=== PATIENT | female | born 1965 | race Two or more races ===

== ENCOUNTER 2017-01-16 08:52 | Emergency (ER) | payer OTHER ==
[~2017-01-16] VITALS: Ht 152.4 cm; Wt 71.0 kg
[2017-01-16 08:56] VITALS: Ht 152.4 cm; Wt 71.0 kg
[2017-01-16] MEDS ORDERED: HYDROCODONE/APAP (5/325) TAB PO ONE (09:00)
--- NOTE | 2017-01-16 09:46 | ERD ---
ER Documentation Chief Complaint Date/Time DATE: 01/16/17 TIME: 09:39 Chief Complaint bilateral leg pain after fall HPI This is a very pleasant 51-year-old female presents to the emergency department after she had a mechanical slip and fall wearing slippers down 2 steps in her home on a carpeted surface. The patient did not hit her head or lose consciousness. She indicates she is having pain of her left ankle that is 8 out of 10 in intensity and worse with ambulation. She is also complaining of mild pain of her right ankle that is exacerbated by movement, 2 out of 10 in intensity. She has no numbness or tingling of her bilateral lower extremities. She has had no fever shaking or chills. She did not take any analgesic medication prior to arrival. She denies a headache or neck pain and has no changes in sensation of her lower extremities. ROS All systems reviewed and are negative except as per history of present illness. Medications Home Meds Active Scripts Hydrocodone/Acetaminophen (Jarales 5-325 Tablet) 1 Each Tablet, 1 TAB PO Q6H Y for PAIN, #20 TAB Prov:JIN CARMONA 01/16/17 Ibuprofen* (Motrin*) 600 Mg Tab, 600 MG PO Q8, #30 TAB Prov:JIN CARMONA 01/16/17 Allergies Allergies: Coded Allergies: No Known Allergy (Unverified , 01/16/17) PMhx/Soc Medical and Surgical Hx: pt denies Medical Hx, pt denies Surgical Hx Hx Alcohol Use: No Hx Substance Use: No Hx Tobacco Use: No Physical Exam Vitals Vital Signs Date Time Temp Pulse Resp B/P Pulse Ox O2 Delivery O2 Flow Rate FiO2 01/16/17 08:56 98.1 75 18 136/74 99 Physical Exam Constitutional:Well-developed. Well-nourished. HEENT:Normocephalic. Atraumatic.Pupils were equal round reactive to light. Moist mucous membranes.No tonsillar exudates. No nasoseptal hematoma. No hemotympanum. Neck: No nuchal rigidity. No lymphadenopathy. No posterior cervical spine tenderness or step-offs. Respiratory: Not using accessory muscles of respiration.Lungs were clear to auscultation bilaterally. No rhonchi. No rales. No wheezing. Cardiovascular: Regular rate regular rhythm.No murmurs. No rubs were appreciated.S1, S2 normal. Distal pulses are palpable 2+ bilaterally. GI: Abdomen was soft. Nontender. Non Distended. No pulsatile abdominal masses or bruits. No rebound. No guarding. Bowel sounds were present and normal. Muscle skeletal: Full range of motion of both the upper and lower extremities bilaterally.Normal muscle tone.No assymetrical calf tenderness or swelling. Tenderness over the left medial and lateral malleolus with no midfoot tenderness on the left and no tenderness of the base of the fifth metatarsal. Patient able to dorsiflex and plantarflex the left foot. No tenderness of the left fibular head. Tenderness over the right medial malleolus. No tenderness over the base of the fifth right metatarsal and no midfoot tenderness on the right. Skin: No petechia, no purpura. No lesions on the palms or the soles of the feet. No maculopapular rash. NEURO: Patient was alert, awake, orientated x3.No facial droop. Gait observed and patient had difficulty ambulating more than 4 steps in the emergency department secondary to pain.Speech had regular rate and rhythm. No focal neurological deficits. Results 24 hrs Current Medications Medications (Trade) Dose Ordered Sig/Ernesto Route PRN Reason Start Time Stop Time Status Last Admin Dose Admin Acetaminophen/ Hydrocodone Bitart (Jarales (5/325)) 1 tab ONCE ONCE PO 01/16/17 09:00 01/16/17 09:01 DC 01/16/17 09:00 Procedures/MDM This patient presented to the emergency department with a mechanical trip and fall and bilateral ankle pain. Utilizing the [place] ankle and knee rules radiographic imaging was obtained of the left and right ankle and reviewed by myself. The patient had a closed oblique distal left fibular fracture and ankle sprain of the right as there is soft tissue swelling over the lateral malleolus. The patient was placed in a short leg posterior splint on the left and afterwards was reevaluated by myself and neurovascularly intact. Compartments were soft. The fracture was closed with no abrasions of the overlying skin. The patient received Jarales for analgesic control. She was also given a walking boot and an Jeffrey bandage was applied to the left ankle. I explained to the patient that she will require outpatient follow-up with an orthopedic surgeon. She was provided a prescription of both Jarales and Motrin. The patient was discharged home in fair condition. They were instructed to return to the emergency department at any time if there was any worsening of their condition. The patient stated they would follow up with their PCP in the next 24-48 hours to initiate a suitable medication regimen under the care of their PCP as well as to allow their PCP to monitor any drug reactions. The patient was discharged home with prescriptions after they gave informed consent to the new medication. They were also fully informed by myself on the adverse effects and adverse drug interactions in order to provide adequate safeguards to prevent possible adverse reactions to medications. Departure Diagnosis: Primary Impression: Closed fibular fracture Encounter type: initial encounter Fibula location: shaft Fracture morphology: oblique Fracture alignment: nondisplaced Laterality: left Qualified Code: S82.435A - Closed nondisplaced oblique fracture of shaft of left fibula, initial encounter Additional Impression: Right ankle sprain Encounter type: initial encounter Involved ligament of ankle: unspecified ligament Qualified Code: S93.401A - Sprain of right ankle, unspecified ligament, initial encounter Condition: Fair JIN CARMONA Jan 16, 2017 09:46
--- NOTE | 2017-01-16 09:46 | RADRPT ---
PROCEDURE: XR Left Ankle CLINICAL INDICATION: Ankle pain TECHNIQUE: Standard 3 view radiographs were submitted. COMPARISON: None FINDINGS: Osseous structures: There is an oblique nondisplaced fracture through the distal left fibular metadi aphysis. The remaining osseous elements appear intact. Joint spaces: The ankle mortise is well maintained. Soft tissues: Appear unremarkable. IMPRESSION: Nondisplaced oblique fracture of the distal left fibular metadiaphysis. Physician Ivette Date Time Electronically viewed and signed by Sherlyn Kurtz Physician on 01/16/2017 09:46 /
--- NOTE | 2017-01-16 09:47 | RADRPT ---
PROCEDURE: XR Right Ankle CLINICAL INDICATION: Ankle pain TECHNIQUE: Standard 3 view radiographs were submitted. COMPARISON: None FINDINGS: Osseous structures: Well mineralized and intact with no fracture or destructive process identified. Joint spaces: Well maintained with no significant erosions or spurring evident. Soft tissues: Soft tissue swelling is seen about the lateral malleolus suspicious for a sprain. IMPRESSION: Right ankle sprain. Physician Ivette Date Time Electronically viewed and signed by Sherlyn Kurtz Physician on 01/16/2017 09:46 /
[2017-01-16] MEDS ORDERED: HYDR-906 PO (09:50)
[2017-01-16] MEDS ORDERED: IBUP-1542 PO (09:50)
== END 2017-01-16 10:32 | disposition home or self-care (01) ==
LOC: FTE 08:52
DX: S82.435A Nondisplaced oblique fracture of shaft of left fibula, initial encounter for closed fracture (principal); S93.401A Sprain of unspecified ligament of right ankle, initial encounter; W10.9XXA Fall (on) (from) unspecified stairs and steps, initial encounter; Y92.009 Unspecified place in unspecified non-institutional (private) residence as the place of occurrence of the external cause
CPT/HCPCS: 29515; 73610; Z7610

== ENCOUNTER 2017-04-05 06:02 | Emergency (ER) | payer OTHER ==
[~2017-04-05] VITALS: Ht 175.3 cm; Wt 95.5 kg
[~2017-04-05 06:02] MED LIST: HYDR-906 PO; IBUP-1542 PO
[2017-04-05 06:05] VITALS: Ht 175.3 cm; Wt 95.5 kg
[2017-04-05] MEDS ORDERED: ONDANSETRON 4 MG INJ IV STA (06:15)
[2017-04-05] MEDS ORDERED: KETOROLAC 30 MG INJ IV STA (06:15)
[2017-04-05] MEDS ORDERED: SOD CHLORIDE 0.9% 1,000 ML IV STA (06:15)
[2017-04-05] MEDS ORDERED: HYDROmorphONE 1 MG/ML SYG IV STA (06:15)
[2017-04-05] MEDS ORDERED: CA C1TAB66 PO (06:28)
[2017-04-05] MEDS ORDERED: OMEG-135 PO (06:28)
[2017-04-05] MEDS ORDERED: TURM500C8 PO (06:28)
[2017-04-05] MEDS ORDERED: UBID50TA PO (06:28)
[2017-04-05 06:36] LABS: ADD SCAN DIFF NO
[2017-04-05 06:38] LABS: BASOPHIL # 0.1 10^3/ul (0.0-0.1); BASOPHILS % 0.6 % (0.0-2.0); EOSINOPHILS # 0.1 10^3/ul (0.0-0.5); EOSINOPHILS % 1.2 % (0.0-7.0); HEMATOCRIT 36.7 % (37.0-47.0); HEMOGLOBIN 12.4 g/dl (12.0-16.0); LYMPHOCYTES # 2.2 10^3/ul (0.8-2.9); MEAN CORPUSCULAR HEMOGLOBIN 30.5 pg (29.0-33.0); MEAN CORPUSCULAR HGB CONC 33.8 g/dl (32.0-37.0); MEAN CORPUSCULAR VOLUME 90.4 fl (82.0-101.0); MEAN PLATELET VOLUME 9.6 fl (7.4-10.4); MONOCYTE # 0.5 10^3/ul (0.3-0.9); MONOCYTES % 6.1 % (0.0-11.0); NEUTROPHIL # 5.2 10^3/ul (1.6-7.5); NEUTROPHILS % 64.7 % (39.0-77.0); PLATELET COUNT 238 10^3/UL (140-415); RED BLOOD COUNT 4.06 10^6/ul (4.20-5.40); RED CELL DISTRIBUTION WIDTH 11.9 % (11.5-14.5)
[2017-04-05 06:43] VITALS: TEMP 98
[2017-04-05 06:56] LABS: ALBUMIN 4.6 g/dl (3.3-4.9); ALBUMIN/GLOBULIN RATIO 1.7; BILIRUBIN,INDIRECT 0.1 mg/dl (0-1.1); BILIRUBIN,TOTAL 0.1 mg/dl (0.2-1.3); CALCIUM 9.5 mg/dl (8.4-10.2); CREATININE 0.68 mg/dl (0.44-1.00); POTASSIUM 3.9 mmol/L (3.5-5.1); TOTAL PROTEIN 7.3 g/dl (6.1-8.1)
[2017-04-05 07:36] LABS: ADD UMIC NO; UR ASCORBIC ACID NEGATIVE (NEGATIVE); UR BILIRUBIN (Dip) NEGATIVE (NEGATIVE); UR BLOOD (Dip) NEGATIVE (NEGATIVE); UR CLARITY CLEAR (CLEAR); UR COLOR YELLOW (YELLOW); UR GLUCOSE (Dip) NEGATIVE (NEGATIVE); UR KETONES (Dip) NEGATIVE (NEGATIVE); UR LEUKOCYTE ESTERASE (Dip) NEGATIVE Leu/ul (NEGATIVE); UR NITRITE (Dip) NEGATIVE (NEGATIVE); UR SPECIFIC GRAVITY (Dip) 1.014 (1.003-1.030); UR TOTAL PROTEIN (Dip) NEGATIVE (NEGATIVE); UR UROBILINOGEN (Dip) NEGATIVE (NEGATIVE)
[2017-04-05 07:54] VITALS: BP 123/66; PULSE 66; RESP 16
--- NOTE | 2017-04-05 08:03 | RADRPT ---
PROCEDURE: CT Abdomen and pelvis without contrast. CLINICAL INDICATION: Abdominal Pain TECHNIQUE: CT scan of the abdomen and pelvis without contrast was performed on a multidetector hig h-resolution CT scan. . Coronal and sagittal reformatted images were obtained from the [facility] e images. Standard CT scan of the abdomen pelvis without contrast protocols were performed. The total exam CTDI equals 23.9 mGy and the total exam DLP equals 1023.47 mGy-cm. One or more of the following dose reduction techniques were used: - Automated exposure control. - Adjustment of the mA and/or kV according to patient size. Use of iterative reconstruction technique. COMPARISON: None. FINDINGS: The kidneys are normal in size without calcified renal calculi or hydronephrosis bilaterally. There is a subcapsular 1.3 cm low density mass involving the lateral mid right kidney with Hounsfield uni ts consistent with fat consistent with an angiomyolipoma. No other intra renal masses bilaterally. The urinary bladder is unremarkable. The uterus is retroverted but otherwise unremarkable. There is a 2.4 cm low density in the left adn exa likely out left ovarian cyst. There is a 1 cm ill-defined low density in the right adnexa which may represent a right ovarian cyst. A pelvic ultrasound may be helpful for further evaluation. Negative for intra-abdominal free air, free fluid, abscesses or lymphadenopathy. There is a small hiatal hernia with the stomach otherwise unremarkable. The small bowel, large nevin l and appendix are unremarkable. The liver spleen pancreas and adrenal glands are unremarkable. The gallbladder is unremarkable and no biliary ductal dilation. The aorta is unremarkable. There is a small fat containing umbilical hernia without herniated bowel or strangulation. Parenchymal changes at the lung bases consistent with dependent atelectasis and scarring. There are degenerative changes lower thoracic and lumbar spine but no acute osseous findings or oste oblastic/osteolytic lesions. Mild levorotatory scoliosis lower thoracic and lumbar spine. IMPRESSION: 1. No evidence of calcified urinary calculi or obstructive uropathy. 1.3 cm subcapsular lateral mi d right renal low density lesion consistent with an angiomyolipoma. 2. In the right and left adnexa are low density lesions as above likely ovarian cyst. A pelvic ult rasound is suggested if clinically indicated. 3. Small hiatal hernia. 4. Unremarkable appendix. 5. Small fat containing umbilical hernia without herniated bowel or strangulation. RPTAT:AAJJ Fanny Naylor Physician Date Time Electronically viewed and signed by Fanny Naylor Physician on 04/05/2017 08:03 BM/
[2017-04-05] MEDS ORDERED: DOCU-144 PO (08:11)
[2017-04-05] MEDS ORDERED: IBUP-1542 PO (08:11)
[2017-04-05] MEDS ORDERED: HYDR-902 PO (08:11)
--- NOTE | 2017-04-05 08:20 | ERD ---
ER Documentation Chief Complaint Date/Time DATE: 04/05/17 TIME: 08:17 Chief Complaint REYES RA 889 c/o lower back pain HPI Patient is a 51-year-old female with no medical problems who presents with back pain. The patient was brought in by ambulance. She has left-sided lower back pain which started yesterday. The pain comes and goes but was worse today. She tried ibuprofen and [place]. She has had this before. She denies incontinence. She has no fevers. She does not currently have a primary doctor. The pain is sharp in nature. ROS All systems reviewed and are negative except as per history of present illness. Medications Home Meds Active Scripts Docusate Sodium* (Colace*) 100 Mg Capsule, 100 MG PO TID, #30 CAP Prov:PEYMAN SANCHEZ MD 04/05/17 Hydrocodone/Acetaminophen ([place] 10-325 Tablet) 1 Each Tablet, 1 TAB PO Q6H Y for PAIN, #12 TAB Prov:PEYMAN SANCHEZ MD 04/05/17 Ibuprofen* (Motrin*) 600 Mg Tab, 600 MG PO Q6H Y for PAIN AND OR ELEVATED TEMP, #30 TAB Prov:PEYMAN SANCHEZ MD 04/05/17 Hydrocodone/Acetaminophen ([place] 5-325 Tablet) 1 Each Tablet, 1 TAB PO Q6H Y for PAIN, #20 TAB Prov:JIN CARMONA 01/16/17 Ibuprofen* (Motrin*) 600 Mg Tab, 600 MG PO Q8, #30 TAB Prov:JIN CARMONA 01/16/17 Reported Medications Turmeric Root Extract (TURMERIC) 500 Mg Capsule, 500 MG PO, CAP 04/05/17 Ca Carb & Gluc/Mag Ox & Gluc (CALCIUM MAGNESIUM CAPLET) 1 Each Tablet, 1 EACH PO , TAB 04/05/17 [place]-3 Fatty Acids/Fish Oil (Fish Oil 1,000 mg Capsule) 1 Each Capsule, 1 EACH PO, CAP 04/05/17 Ubidecarenone (COQ10) 50 Mg Tab.chew, 50 MG PO, TAB.CHEW 04/05/17 Allergies Allergies: Coded Allergies: No Known Allergy (Unverified , 04/05/17) PMhx/Soc History of Surgery: No Anesthesia Reaction: No Hx Neurological Disorder: No Hx Respiratory Disorders: No Hx Cardiac Disorders: No Hx Psychiatric Problems: No Hx Miscellaneous Medical Probl: Yes (CHRONIC LOW BACK PAIN) Hx Alcohol Use: No Hx Substance Use: No Hx Tobacco Use: No Smoking Status: Never smoker FmHx Family History: No diabetes Physical Exam Vitals Vital Signs Date Time Temp Pulse Resp B/P Pulse Ox O2 Delivery O2 Flow Rate FiO2 04/05/17 07:54 66 16 123/66 04/05/17 06:43 98.0 67 16 106/56 95 Room Air 04/05/17 06:05 97.9 80 18 140/90 100 Physical Exam Const: Moderate distress secondary to pain Head: Atraumatic Eyes: Normal Conjunctiva ENT: Normal External Ears, Nose and Mouth. Neck: Full range of motion..~ No meningismus. Resp: Clear to auscultation bilaterally Cardio: Regular rate and rhythm, no murmurs Abd: Soft, non tender, non distended. Normal bowel sounds Skin: No petechiae or rashes Back: Left lower back pain without midline tenderness Ext: No cyanosis, or edema Neur: Awake and alert, strength in the lower extremities bilaterally with sensation intact Psych: Normal Mood and Affect Result Diagram: 04/05/17 0604/05/17 0620 Results 24 hrs Laboratory Tests Test 04/05/17 06:20 04/05/17 07:00 White Blood Count 8.010^3/ul Red Blood Count 4.0610^6/ul Hemoglobin 12.4g/dl Hematocrit 36.7% Mean Corpuscular Volume 90.4fl Mean Corpuscular Hemoglobin 30.5pg Mean Corpuscular Hemoglobin Concent 33.8g/dl Red Cell Distribution Width 11.9% Platelet Count 02321^3/UL Mean Platelet Volume 9.6fl Neutrophils % 64.7% Lymphocytes % 27.0% Monocytes % 6.1% Eosinophils % 1.2% Basophils % 0.6% Nucleated Red Blood Cells % 0.0/100WBC Neutrophils # 5.210^3/ul Lymphocytes # 2.210^3/ul Monocytes # 0.510^3/ul Eosinophils # 0.110^3/ul Basophils # 0.110^3/ul Nucleated Red Blood Cells # 0.010^3/ul Sodium Level 143mmol/L Potassium Level 3.9mmol/L Chloride Level 103mmol/L Carbon Dioxide Level 24mmol/L Anion Gap 20 Blood Urea Nitrogen 18mg/dl Creatinine 0.68mg/dl Glucose Level 98mg/dl Calcium Level 9.5mg/dl Total Bilirubin 0.1mg/dl Direct Bilirubin 0.00mg/dl Indirect Bilirubin 0.1mg/dl Aspartate Amino Transf (AST/SGOT) 21IU/L Alanine Aminotransferase (ALT/SGPT) 34IU/L Alkaline Phosphatase 54IU/L Total Protein 7.3g/dl Albumin 4.6g/dl Globulin 2.70g/dl Albumin/Globulin Ratio 1.70 Lipase 127U/L Urine Color YELLOW Urine Clarity CLEAR Urine pH 6.0 Urine Specific [place] 1.014 Urine Ketones NEGATIVEmg/dL Urine Nitrite NEGATIVEmg/dL Urine Bilirubin NEGATIVEmg/dL Urine Urobilinogen NEGATIVEmg/dL Urine Leukocyte Esterase NEGATIVELeu/ul Urine Hemoglobin NEGATIVEmg/dL Urine Glucose NEGATIVEmg/dL Urine Total Protein NEGATIVEmg/dl Current Medications Medications (Trade) Dose Ordered Sig/Ernesto Route PRN Reason Start Time Stop Time Status Last Admin Dose Admin Sodium Chloride (NS) 1,000 ml @ 1,000 mls/hr Q1H STAT IV 04/05/17 06:15 04/05/17 07:14 DC 04/05/17 06:28 Hydromorphone HCl (Dilaudid) 1 mg ONCE STAT IV 04/05/17 06:15 04/05/17 06:16 DC 04/05/17 06:28 Ondansetron HCl (Zofran Inj) 4 mg ONCE STAT IV 04/05/17 06:15 04/05/17 06:16 DC 04/05/17 06:28 Ketorolac Tromethamine (Toradol) 30 mg ONCE STAT IV 04/05/17 06:15 04/05/17 06:16 DC 04/05/17 06:28 Procedures/MDM CT abdomen pelvis shows no obvious surgical process per radiology. Patient is a 51-year-old female presents with left lower back pain. She had a full workup including laboratory studies, urinalysis, and CT scan of the abdomen and pelvis. Her workup was benign with normal laboratory studies, no urine infection, and no sign of surgical process on the CT scan. At this point I doubt epidural abscess, epidural hematoma, or cauda equina syndrome. I doubt kidney stone, bowel obstruction, or pyelonephritis. The patient will be discharged home with a prescription for ibuprofen and [place]. She can follow-up with a primary doctor the local clinics within 24-48 hours for reevaluation. She can return sooner for any worsening symptoms. She was given a copy of her laboratory studies and CT scan prior to discharge. Departure Diagnosis: Primary Impression: Back pain Back pain location: low back pain Chronicity: acute Back pain laterality: left Sciatica presence: without sciatica Qualified Code: M54.5 - Acute left- sided low back pain without sciatica Condition: Fair Patient Instructions: Back Pain (Acute Or Chronic) Referrals: COMMUNITY CLINICS YOU HAVE RECEIVED A MEDICAL SCREENING EXAM AND THE RESULTS INDICATE THAT YOU DO NOT HAVE A CONDITION THAT REQUIRES URGENT TREATMENT IN THE EMERGENCY DEPARTMENT. FURTHER EVALUATION AND TREATMENT OF YOUR CONDITION CAN WAIT UNTIL YOU ARE SEEN IN YOUR DOCTORS OFFICE WITHIN THE NEXT 1-2 DAYS. IT IS YOUR RESPONSIBILITY TO MAKE AN APPOINTMENT FOR FOLOW-UP CARE. IF YOU HAVE A PRIMARY DOCTOR --you should call your primary doctor and schedule an appointment IF YOU DO NOT HAVE A PRIMARY DOCTOR YOU CAN CALL OUR PHYSICIAN REFERRAL HOTLINE AT IF YOU CAN NOT AFFORD TO SEE A PHYSICIAN YOU CAN CHOSE FROM THE FOLLOWING [facility] CLINICS [facility] [address] [facility]. [facility] [address] [facility] [facility] [address] [facility] [facility] [address] [facility]. [facility] [address] [facility]. [facility]. [address] [place] Additional Instructions: Call your primary care doctor TOMORROW for an appointment during the next 1-2 days.See the doctor sooner or return here if your condition worsens before your appointment time. PEYMAN SANCHEZ MD Apr 05, 2017 08:20
== END 2017-04-05 08:31 | disposition home or self-care (01) ==
LOC: E/R 06:02
DX: M54.5 Low back pain (principal)
CPT/HCPCS: 36415; 74176; 80053; 81003; 83690; 85025; 96374; 96375; J1170; J1885; J2405; J7030; Z7502